=== PATIENT | male | born 1955 | race Caucasian/White ===

== ENCOUNTER → 2016-11-23 | Outpatient (CLI) | payer BC, MEDICARE ==
--- NOTE | 2016-11-23 12:42 | XR ---
EXAMINATION TYPE: XR abdomen 1V DATE OF EXAM: 11/23/2016 12:19 PM COMPARISON: NONE HISTORY: Pain TECHNIQUE: One view abdominal series FINDINGS: The osseous structures are intact. The bowel gas pattern is nonspecific. Lung bases are clear. Post operative change involving the vertebral column noted. A few scattered air-fluid levels noted. Arthro michael of the hips. IMPRESSION: 1. Nonspecific abdomen. Prominent bowel loops with air-fluid level right abdomen could be on the bas is of an ileus or enteritis.
== END | disposition home or self-care (01) ==
LOC: RADXRMAIN 12:02
PROVIDERS: ATTEND Internal Medicine
DX: K21.0 Gastro-esophageal reflux disease with esophagitis (principal)
CPT/HCPCS: 74000

== ENCOUNTER → 2017-10-09 | Outpatient (CLI) | payer BC, MEDICARE ==
[2017-10-09 11:49] LABS: Prostate Specific Antigen 0.48 ng/mL (0.00-4.00)
== END | disposition home or self-care (01) ==
LOC: LABWHC1 10:20
PROVIDERS: ATTEND Internal Medicine
DX: N40.0 Benign prostatic hyperplasia without lower urinary tract symptoms (principal); E78.2 Mixed hyperlipidemia
CPT/HCPCS: 36415; 80061; 82550; 84153; 84450; 84460

== ENCOUNTER → 2018-02-26 | Outpatient (CLI) | payer BC, MEDICARE ==
[2018-02-26 11:13] LABS: Blood Urea Nitrogen 16 mg/dL (9-20)
== END | disposition home or self-care (01) ==
LOC: LABWHC1 10:23
PROVIDERS: ATTEND Physical Medicine & Rehabilitation
DX: M51.17 Intervertebral disc disorders with radiculopathy, lumbosacral region (principal); M47.27 Other spondylosis with radiculopathy, lumbosacral region; M48.062 Spinal stenosis, lumbar region with neurogenic claudication; M47.24 Other spondylosis with radiculopathy, thoracic region; M79.1 Myalgia; M96.1 Postlaminectomy syndrome, not elsewhere classified; Z98.1 Arthrodesis status
CPT/HCPCS: 36415; 82565; 84520

== ENCOUNTER → 2018-06-10 | Outpatient (CLI) | payer BC, MEDICARE ==
--- NOTE | 2018-06-10 13:06 | CT ---
EXAMINATION TYPE: CT lumbar spine wo con DATE OF EXAM: 06/10/2018 12:51 PM COMPARISON: HISTORY: Right sided back pain CT DLP: [id number] Automated exposure control for dose reduction was used. Unenhanced CT of the lumbar spine was performed. Bone and soft tissue window settings are submitted as well as coronal and sagittal reconstructions. There is loss of the normal sized lumbar lordosis. No anterolisthesis. Atherosclerotic change of the aorta. At T12-L1 there is discogenic marrow changes, vacuum disc and complete loss of disc space compatible severe degenerative disc disease. Central disc bulging suspected with effacement of thecal sac. Canal stenosis suspected with bilateral foraminal encroachment. Due to reduced resolution would recommend MRI to assess for disc herniation. Bilateral foraminal encroachment suspected. L1-L2: Complete loss of disc space and vacuum disc compatible severe degenerative disc disease. Diffu se disc bulging with broad-based central protrusion effaces the thecal sac. Hypertrophic change of th e facets is noted and there is bilateral foraminal encroachment and significant central stenosis. L2-L3: Extensive postsurgical change with artifact limiting assessment for disc herniation or canal s tenosis. Hypertrophic spurring with relation to the facet on the left results in mild left foraminal encroachment. L3-L4: Extreme artifact which limits assessment spinal canal. No obvious canal stenosis. Nondiagnosti c assessment for disc herniation. Neural foramina grossly patent. L4-L5: Extreme metallic artifact which limits assessment spinal canal and is nondiagnostic for canal stenosis or disc herniation or foraminal encroachment. Extensive postsurgical changes. L5-S1: Extreme metallic artifact which limits assessment spinal canal and is nondiagnostic for canal stenosis or disc herniation or foraminal encroachment. Extensive postsurgical changes. IMPRESSION: 1. Exam is limited due to severe metallic artifact at the postsurgical levels resulting in nearly non diagnostic exam these levels. 2. There is complete loss of disc space and severe degenerative disc disease T12-L1 and L1-L2 with ce ntral disc protrusion or herniation suspected at both levels, bilateral foraminal encroachment and si gnificant spinal canal stenosis.
== END ==
LOC: RADCTMAIN 12:32
PROVIDERS: ATTEND Orthopaedic Surgery
DX: M48.061 Spinal stenosis, lumbar region without neurogenic claudication (principal); M51.35 Other intervertebral disc degeneration, thoracolumbar region
CPT/HCPCS: 72131

== ENCOUNTER → 2018-08-20 | Outpatient (CLI) | payer BC ==
--- NOTE | 2018-08-20 09:40 | XR ---
EXAMINATION TYPE: XR chest 2V DATE OF EXAM: 08/20/2018 COMPARISON: NONE TECHNIQUE: PA and lateral views submitted. HISTORY: Presurgical clearance FINDINGS: The lungs are clear and there is no pneumothorax, pleural effusion, or focal pneumonia. Hypertrophi c and degenerative change of the vertebral column. IMPRESSION: 1. No acute process.
[2018-08-20 10:01] LABS: HCT 43.7 % (39.0-53.0); HGB 14.5 gm/dL (13.0-17.5); MCH 29.6 pg (25.0-35.0); MCHC 33.1 g/dL (31.0-37.0); MCV 89.3 fL (80.0-100.0); Mean Platelet Volume 6.8; Platelet Count 221 k/uL (150-450); RBC 4.89 m/uL (4.30-5.90); RDW 13.4 % (11.5-15.5); WBC 6.9 k/uL (3.8-10.6)
[2018-08-20 10:10] LABS: Appearance,Urine Clear (Clear); Bilirubin,Urine Negative (Negative); Blood,Urine Trace (Negative); Color,Urine Yellow; Glucose,Urine (UA) Negative (Negative); Hyaline Casts,Urine 6 /lpf (0-2); Ketones,Urine Negative (Negative); Leukocyte Esterase,Urine Negative (Negative); Mucus,Urine Many /hpf; Nitrite,Urine Negative (Negative); Protein,Urine Trace (Negative); RBC,Urine 4 /hpf (0-5); Specific Gravity,Urine 1.023 (1.001-1.035); Squamous Epithelial Cell,Urine <1 /hpf (0-4); Urobilinogen,Urine <2.0 mg/dL (<2.0); WBC,Urine 1 /hpf (0-5)
[2018-08-20 17:26] LABS: Albumin 4.5 g/dL (3.80-4.90); Albumin/Globulin Ratio 2.25 (1.20-2.10); Anion Gap 7.5 mmol/L (4.00-12.00); Calcium 9.6 mg/dL (8.7-10.3); Carbon Dioxide 28.5 mmol/L (21.6-31.8); LDL Cholesterol,Calculated 102.8 mg/dL (0.0-131.0); Potassium 5.4 mmol/L (3.5-5.5); Total Bilirubin 0.3 mg/dL (0.3-1.2); Total Protein 6.5 g/dL (6.2-8.2); VLDL Calculation 79.2 mg/dL (5.00-40.00)
== END | disposition home or self-care (01) ==
LOC: LABWHC1 08:49
PROVIDERS: ATTEND Internal Medicine
DX: Z00.00 Encounter for general adult medical examination without abnormal findings (principal); E78.2 Mixed hyperlipidemia; I11.9 Hypertensive heart disease without heart failure; K21.0 Gastro-esophageal reflux disease with esophagitis; N40.0 Benign prostatic hyperplasia without lower urinary tract symptoms; J44.9 Chronic obstructive pulmonary disease, unspecified; R35.0 Frequency of micturition
CPT/HCPCS: 36415; 71046; 80053; 80061; 81001; 82272; 84153; 84439; 84443; 85027; 93005

== ENCOUNTER → 2018-08-30 | Outpatient (CLI) | payer BC ==
--- NOTE | 2018-08-30 15:50 | US ---
EXAMINATION TYPE: US abdomen complete DATE OF EXAM: 08/30/2018 COMPARISON: NONE CLINICAL HISTORY: R94.5 ABN LIVER FUNCTIONS. EXAM MEASUREMENTS: Liver Length: 15.2 cm Gallbladder Wall: 0.3 cm CBD: 0.2 cm Spleen: 11.6 cm Right Kidney: 11.6 x 5.4 x 4.9 cm Left Kidney: 11.2 x 5.5 x 5.3 cm Severe midline bowel gas, limiting study. Pancreas: limited views partially obscured by overlying bowel gas, portions visualized wnl Liver: Increased attenuation, decreased visualization of vessels, somewhat heterogeneous which can b e compatible with mild fatty infiltration. Gallbladder: somewhat limited visualization due to overlying bowel gas Evidence for sonographic Tellez's sign: CBD: limited visualization Spleen: wnl Right Kidney: wnl Left Kidney: wnl Upper IVC: limited visualization Abd Aorta: Mostly obscured by overlying bowel gas, portions visualized wnl IMPRESSION: 1. Visualized abdomen ultrasound is unremarkable. There is some limitation due to bowel gas. 2. Mild fatty infiltration liver.
== END | disposition home or self-care (01) ==
LOC: RADUSWWP 10:09
PROVIDERS: ATTEND Internal Medicine
DX: K76.0 Fatty (change of) liver, not elsewhere classified (principal)
CPT/HCPCS: 76700

== ENCOUNTER → 2018-09-04 | Outpatient (CLI) | payer BC ==
[2018-09-04 11:05] LABS: INR 0.9 (<1.2); Partial Thromboplastin Time 30.6 sec (22.0-30.0); Prothrombin Time 9.6 sec (9.0-12.0)
[2018-09-04 12:22] LABS: HCT 43.4 % (39.0-53.0); HGB 14.4 gm/dL (13.0-17.5); MCH 29.6 pg (25.0-35.0); MCHC 33.1 g/dL (31.0-37.0); MCV 89.4 fL (80.0-100.0); Platelet Count 250 k/uL (150-450); RBC 4.85 m/uL (4.30-5.90); RDW 13.5 % (11.5-15.5); WBC 7.9 k/uL (3.8-10.6)
[2018-09-04 13:06] LABS: Appearance,Urine Clear (Clear); Bilirubin,Urine Negative (Negative); Blood,Urine Negative (Negative); Color,Urine Yellow; Glucose,Urine (UA) Negative (Negative); Ketones,Urine Negative (Negative); Leukocyte Esterase,Urine Negative (Negative); Nitrite,Urine Negative (Negative); PH, Urine 5.5 (5.0-8.0); Protein,Urine Negative (Negative); Specific Gravity,Urine 1.014 (1.001-1.035); Urobilinogen,Urine <2.0 mg/dL (<2.0)
[2018-09-04 16:18] LABS: Anion Gap 6.3 mmol/L (4.00-12.00); Calcium 9.8 mg/dL (8.7-10.3); Carbon Dioxide 27.7 mmol/L (21.6-31.8); Potassium 5.6 mmol/L (3.5-5.5)
== END | disposition home or self-care (01) ==
LOC: LABWHC1 10:05
PROVIDERS: ATTEND Internal Medicine
DX: Z01.812 Encounter for preprocedural laboratory examination (principal)
CPT/HCPCS: 36415; 80048; 81003; 85027; 85610; 85730

== ENCOUNTER → 2018-12-19 | Outpatient (CLI) | payer BC ==
[2018-12-19 16:52] LABS: Albumin 4.6 g/dL (3.80-4.90); Albumin/Globulin Ratio 2.42 (1.60-3.17); Anion Gap 10.8 mmol/L (4.00-12.00); Calcium 9.5 mg/dL (8.7-10.3); Carbon Dioxide 27.2 mmol/L (21.6-31.8); Globulin 1.9 g/dL (1.6-3.3); LDL Cholesterol,Calculated 118.2 mg/dL (0.0-131.0); Potassium 4.7 mmol/L (3.5-5.5); Total Bilirubin 0.3 mg/dL (0.2-1.2); Total Protein 6.5 g/dL (6.2-8.2); VLDL Calculation 42.8 mg/dL (5.00-40.00)
== END | disposition home or self-care (01) ==
LOC: LABWHC1 07:57
PROVIDERS: ATTEND Internal Medicine
DX: E78.2 Mixed hyperlipidemia (principal); I11.9 Hypertensive heart disease without heart failure
CPT/HCPCS: 36415; 80053; 80061

== ENCOUNTER → 2018-12-25 | Outpatient (CLI) | payer BC ==
[2018-12-25 20:44] LABS: Hepatitis A Antibody IgM Non-Reactive (Non-Reactive); Hepatitis B Core IgM Non-Reactive (Non-Reactive)
== END ==
LOC: LABWHC1 11:09
PROVIDERS: ATTEND Internal Medicine
DX: R94.5 Abnormal results of liver function studies (principal)
CPT/HCPCS: 36415; 80074

== ENCOUNTER → 2019-02-14 | Outpatient (CLI) | payer BC ==
[2019-02-14 17:40] LABS: ALT 73 U/L (10-49); AST 44 U/L (14-35); Alkaline Phosphatase 163 U/L (41-126); Cholesterol 305 mg/dL (0-200); Creatine Kinase 45 U/L (35-257)
== END | disposition home or self-care (01) ==
LOC: LABWHC1 07:25
PROVIDERS: ATTEND Internal Medicine
DX: E78.2 Mixed hyperlipidemia (principal); R94.5 Abnormal results of liver function studies
CPT/HCPCS: 36415; 80061; 82550; 83721; 84075; 84450; 84460